=== PATIENT | male | born 1950 | race African-American/Black ===

== ENCOUNTER 2017-05-06 09:59 | Observation (INO) ==
[2017-05-06] MEDS ORDERED: ONDANSETRON 4 MG/2 ML VIAL IV PRN ×2 (10:48→15:20)
[2017-05-06] MEDS ORDERED: SODIUM CHLORIDE 0.9% 1,000 ML IV SCH (11:00)
[2017-05-06 11:22] LABS: Basophils % 0.6 % (0.0-0.8); Eosinophils % 0.8 % (0.00-10.9); Hematocrit 31.4 VOL% (42.0-52.0); Hemoglobin 10.2 GM/DL (14.0-18.0); Immature Granulocytes % 0.8 %; Immature Granulocytes Absolute 0.04 #; Lymphocytes # 0.7 10*3/uL (1.4-4.0); Lymphocytes % 14.6 % (21.2-54.2); Mean Corpuscular HGB Conc 32.5 GM/DL (32-36); Mean Corpuscular Hemoglobin 32 PG (27-34); Mean Corpuscular Volume 97.8 FL (87-102); Mean Platelet Volume 11.2 FL (9.6-12.0); Monocytes # 0.3 10*3/uL (0.11-0.8); Monocytes % 6.3 % (1.7-12.7); Neutrophils # 3.8 10*3/uL (1.4-7.4); Neutrophils % 76.9 % (38.7-73.9); Platelet Count 187 T/CUMM (130-400); Red Blood Count 3.21 MC/CUMM (3.8-5.5); Red Cell Distribution Width 20.1 % (9.3-17.3); White Blood Count 4.9 T/CUMM (4-12)
[2017-05-06 11:29] LABS: INR 1.1
[2017-05-06] MEDS ORDERED: DEXTROSE 5% 1,000 ML IV SCH (11:30)
[2017-05-06] MEDS ORDERED: fentaNYL 100 MCG/2 ML VIAL ONE (12:15)
[2017-05-06] MEDS ORDERED: MIDAZOLAM 2 MG/2 ML VIAL ONE (12:16)
[2017-05-06] MEDS ORDERED: ONDANSETRON 4 MG/2 ML VIAL ONE (13:12)
[2017-05-06] MEDS ORDERED: PROPOFOL 200 MG/20 ML VIAL IV ONE (13:12)
[2017-05-06] MEDS ORDERED: LIDOCAINE 1% 5 ML VIAL ONE (13:12)
[2017-05-06] MEDS ORDERED: GLUCAGON 1 MG VIAL ONE (13:24)
[2017-05-06] MEDS ORDERED: MAGNESIUM HYDROXIDE SUSP 30 ML UDCUP PO PRN (15:20)
[2017-05-06] MEDS: oxyCODONE/ACETAMINOPHEN 5-325 MG TABLET PO SCH ×2 (16:16→21:27)
[2017-05-06] MEDS: glyBURIDE 5 MG TABLET PO SCH (16:16)
[2017-05-06] MEDS ORDERED: SAXAGLIPTIN 5 MG PO SCH (17:00)
[2017-05-06 17:35] LABS: Albumin 2.5 G/DL (3.4-5.0); Bilirubin,Direct 9.69 MG/DL (0.0-0.20); Bilirubin,Indirect 1.8 MG/DL (0.0-1.0); Bilirubin,Total 11.5 MG/DL (0.2-1.0); Total Protein 6.1 G/DL (6.4-8.3)
[2017-05-06] MEDS: CIPROFLOXACIN INJ 400 MG in PREMIX 1 EACH IV SCH (17:40)
[2017-05-06] MEDS: cloNIDine 0.1 MG TABLET PO SCH (21:26)
[2017-05-06] MEDS: MAGNESIUM OXIDE 400 MG TABLET PO SCH (21:26)
[2017-05-06] MEDS: DOCUSATE SODIUM 100 MG CAPSULE PO SCH (21:26)
[2017-05-06] MEDS: CYCLOBENZAPRINE 10 MG TABLET PO SCH (21:26)
[2017-05-07] MEDS: oxyCODONE/ACETAMINOPHEN 5-325 MG TABLET PO SCH ×4 (05:28→21:08)
[2017-05-07] MEDS: CIPROFLOXACIN INJ 400 MG in PREMIX 1 EACH IV SCH ×2 (05:29→16:09)
[2017-05-07 06:45] LABS: Albumin 2.3 G/DL (3.4-5.0); Bilirubin,Direct 10.4 MG/DL (0.0-0.20); Total Protein 5.6 G/DL (6.4-8.3)
[2017-05-07 06:48] LABS: Bilirubin,Indirect 2.4 MG/DL (0.0-1.0); Bilirubin,Total 12.8 MG/DL (0.2-1.0)
[2017-05-07] MEDS ORDERED: DEXTROSE 50% 25 GM/50 ML VIAL IV PRN ×2 (07:04→11:46)
[2017-05-07] MEDS ORDERED: DEXTROSE 50% 25 GM/50 ML VIAL IV ONE ×2 (07:04→11:34)
[2017-05-07 08:59] LABS: Basophils % 0.3 % (0.0-0.8); Eosinophils % 0.3 % (0.00-10.9); Hematocrit 30.7 VOL% (42.0-52.0); Immature Granulocytes % 0.6 %; Immature Granulocytes Absolute 0.04 #; Lymphocytes # 0.5 10*3/uL (1.4-4.0); Lymphocytes % 7.4 % (21.2-54.2); Mean Corpuscular HGB Conc 32.6 GM/DL (32-36); Mean Corpuscular Hemoglobin 32 PG (27-34); Mean Corpuscular Volume 96.8 FL (87-102); Mean Platelet Volume 12.4 FL (9.6-12.0); Monocytes # 0.4 10*3/uL (0.11-0.8); Monocytes % 6.5 % (1.7-12.7); Neutrophils # 5.5 10*3/uL (1.4-7.4); Neutrophils % 84.9 % (38.7-73.9); Platelet Count 179 T/CUMM (130-400); Red Blood Count 3.17 MC/CUMM (3.8-5.5); White Blood Count 6.5 T/CUMM (4-12)
[2017-05-07] MEDS ORDERED: GLUCAGON 1 MG VIAL IM PRN (11:46)
[2017-05-07] MEDS: hydroCHLOROthiazide 25 MG TABLET PO SCH (11:57)
[2017-05-07] MEDS: amLODIPine 10 MG TABLET PO SCH (11:57)
[2017-05-07] MEDS: cloNIDine 0.1 MG TABLET PO SCH ×2 (11:57→21:07)
[2017-05-07] MEDS: POTASSIUM CHLORIDE 20 MEQ TABLET PO SCH (11:57)
[2017-05-07] MEDS: ASPIRIN EC 81 MG TABLET PO SCH (11:58)
[2017-05-07] MEDS: CYCLOBENZAPRINE 10 MG TABLET PO SCH ×3 (11:58→21:07)
[2017-05-07] MEDS: MAGNESIUM OXIDE 400 MG TABLET PO SCH ×2 (11:58→21:08)
[2017-05-07] MEDS: DOCUSATE SODIUM 100 MG CAPSULE PO SCH ×2 (11:58→21:07)
[2017-05-07] MEDS: MULTIVITAMIN (CENTRUM) TABLET PO SCH (11:58)
[2017-05-07] MEDS: glyBURIDE 5 MG TABLET PO SCH ×2 (11:59→16:09)
[2017-05-07] MEDS: BENAZEPRIL 40 MG TABLET PO SCH (12:08)
[2017-05-07] MEDS: DEXTROSE 5% NACL 0.45% 1,000 ML IV SCH ×2 (12:47→21:09)
[2017-05-08] MEDS: oxyCODONE/ACETAMINOPHEN 5-325 MG TABLET PO SCH ×3 (04:01→17:05)
[2017-05-08] MEDS: CIPROFLOXACIN INJ 400 MG in PREMIX 1 EACH IV SCH ×2 (04:05→17:06)
[2017-05-08] MEDS: DEXTROSE 5% NACL 0.45% 1,000 ML IV SCH ×2 (04:07→17:06)
[2017-05-08 07:31] LABS: Albumin 2.2 G/DL (3.4-5.0); Bilirubin,Direct 8.16 MG/DL (0.0-0.20); Bilirubin,Indirect 1.8 MG/DL (0.0-1.0); Total Protein 5.6 G/DL (6.4-8.3)
[2017-05-08] MEDS: glyBURIDE 5 MG TABLET PO SCH ×2 (08:00→17:05)
[2017-05-08] MEDS: cloNIDine 0.1 MG TABLET PO SCH (09:42)
[2017-05-08] MEDS: hydroCHLOROthiazide 25 MG TABLET PO SCH (09:42)
[2017-05-08] MEDS: amLODIPine 10 MG TABLET PO SCH (09:42)
[2017-05-08] MEDS: CYCLOBENZAPRINE 10 MG TABLET PO SCH ×2 (09:42→14:58)
[2017-05-08] MEDS: BENAZEPRIL 40 MG TABLET PO SCH (09:42)
[2017-05-08] MEDS ORDERED: DEXTROSE 50% 25 GM/50 ML VIAL IV PRN (12:37)
[2017-05-08] MEDS ORDERED: GLUCAGON 1 MG VIAL IM PRN (12:37)
[2017-05-08] MEDS: MAGNESIUM OXIDE 400 MG TABLET PO SCH (14:57)
[2017-05-08] MEDS: DOCUSATE SODIUM 100 MG CAPSULE PO SCH (14:58)
[2017-05-08] MEDS: MULTIVITAMIN (CENTRUM) TABLET PO SCH (14:58)
[2017-05-08] MEDS: POTASSIUM CHLORIDE 20 MEQ TABLET PO SCH (14:58)
[2017-05-08] MEDS: ASPIRIN EC 81 MG TABLET PO SCH (15:00)
[2017-05-08] MEDS ORDERED: ONDANSETRON 4 MG TABLET PO SCH (18:00)
[2017-05-08 20:30] VITALS: BP 147/90
[2017-05-08] MEDS ORDERED: FERROUS SULFATE 325 MG TABLET PO SCH (21:00)
== END 2017-05-08 18:20 | disposition home or self-care (01) ==
LOC: N.5E 09:59 → N.GILAB 09:59
PROVIDERS: ADMIT Internal Medicine Gastroenterology; ATTEND Internal Medicine Gastroenterology

== ENCOUNTER 2017-09-03 05:29 | Inpatient (IN) ==
[2017-09-03] MEDS ORDERED: ONDANSETRON 4 MG/2 ML VIAL IV STA (06:07)
[2017-09-03] MEDS ORDERED: fentaNYL 100 MCG/2 ML VIAL IV STA (06:07)
[2017-09-03 06:27] LABS: Basophils % 0.3 % (0.0-0.8); Eosinophils % 0.3 % (0.00-10.9); Hematocrit 25.6 VOL% (42.0-52.0); Hemoglobin 8.2 GM/DL (14.0-18.0); Immature Granulocytes % 0.5 %; Immature Granulocytes Absolute 0.02 #; Lymphocytes # 0.3 10*3/uL (1.4-4.0); Mean Corpuscular Hemoglobin 33 PG (27-34); Mean Corpuscular Volume 104.1 FL (87-102); Mean Platelet Volume 11.2 FL (9.6-12.0); Monocytes # 0.2 10*3/uL (0.11-0.8); Monocytes % 4.6 % (1.7-12.7); Neutrophils # 3.2 10*3/uL (1.4-7.4); Neutrophils % 86.3 % (38.7-73.9); Platelet Count 106 T/CUMM (130-400); Red Blood Count 2.46 MC/CUMM (3.8-5.5); Red Cell Distribution Width 21.2 % (9.3-17.3); White Blood Count 3.7 T/CUMM (4-12)
[2017-09-03 06:55] LABS: Albumin 2.5 G/DL (3.4-5.0); Bilirubin,Total 8.1 MG/DL (0.2-1.0); Calcium 8.9 MG/DL (8.5-10.1); Total Protein 6.8 G/DL (6.4-8.3)
[2017-09-03 06:56] LABS: Osmolality,Calculated 282.7 MOS/KG (273-304)
[2017-09-03 07:19] LABS: Amorphous Crystals,Urine Occasional /HPF (Few); Apearance,Urine CLEAR (Clear); Bacteria,Urine Occasional /HPF (Few); Blood, Urine Negative (Negative); Glucose,Urine (UA) Negative (Negative); Hyaline Casts,Urine 1 /LPF (0-3); Ketones,Urine Negative (Negative); Mucus,Urine Occasional /LPF (Occasional); Nitrite,Urine Negative (Negative); Protein,Urine Negative; Squamous Epithelial Cell,Urine Occasional /HPF (0-10); Urine Color Amber (Yellow); Urine Specific Gravity 1.016 (1.001-1.035); WBC,Urine 1 /HPF (0-6)
[2017-09-03 07:20] LABS: Bilirubin,Urine Small mg/dL (Negative)
[2017-09-03] MEDS ORDERED: PROMETHAZINE INJ 25 MG in SODIUM CHLORIDE 0.9% 50 ML IV PRN (09:59)
[2017-09-03] MEDS ORDERED: TEMAZEPAM 7.5 MG CAPSULE PO PRN (09:59)
[2017-09-03] MEDS ORDERED: ALPRAZolam 0.25 MG TABLET PO PRN (09:59)
[2017-09-03] MEDS ORDERED: traMADol 50 MG TABLET PO PRN (09:59)
[2017-09-03] MEDS ORDERED: chlorproMAZINE INJ 25 MG in SODIUM CHLORIDE 0.9% 100 ML IV PRN (09:59)
[2017-09-03] MEDS ORDERED: BENZTROPINE 2 MG/2 ML AMP IV PRN (09:59)
[2017-09-03] MEDS ORDERED: diphenhydrAMINE CAP 25 MG CAPSULE PO PRN (09:59)
[2017-09-03] MEDS ORDERED: ONDANSETRON 4 MG/2 ML VIAL IV PRN (09:59)
[2017-09-03] MEDS ORDERED: MYLANTA/LIDO VISC 2:1 300 ML BOTTLE SWISH/SPIT PRN (09:59)
[2017-09-03] MEDS ORDERED: ACETAMINOPHEN 325 MG TABLET PO PRN (09:59)
[2017-09-03] MEDS ORDERED: fentaNYL 100 MCG/2 ML VIAL IV PRN (09:59)
[2017-09-03] MEDS ORDERED: MAGNESIUM HYDROXIDE SUSP 30 ML UDCUP PO PRN (09:59)
[2017-09-03] MEDS ORDERED: LACTULOSE 20 GM/30 ML UDCUP PO PRN (09:59)
[2017-09-03] MEDS ORDERED: MYLANTA/LIDO VISC 2:1 300 ML BOTTLE SWISH/SWAL PRN (09:59)
[2017-09-03] MEDS ORDERED: guaiFENesin 200 MG/10 ML UDCUP PO PRN (09:59)
[2017-09-03] MEDS ORDERED: chlorproMAZINE INJ 50 MG in SODIUM CHLORIDE 0.9% 100 ML IV PRN (09:59)
[2017-09-03] MEDS ORDERED: ALUMINUM/MAGNES/SIMETH MAX STR 30 ML UDCUP PO PRN (09:59)
[2017-09-03] MEDS ORDERED: chlorproMAZINE 25 MG TABLET PO PRN (09:59)
[2017-09-03] MEDS ORDERED: SODIUM CHLORIDE 0.9% 1,000 ML IV SCH (09:59)
[2017-09-03] MEDS ORDERED: LOPERAMIDE 2 MG CAPSULE PO PRN ×2 (09:59)
[2017-09-03] MEDS: SODIUM CHLORIDE 0.45% 1,000 ML IV SCH (10:44)
[2017-09-03] MEDS: HYDROmorphone 2 MG/1 ML VIAL IV PRN ×2 (11:34→16:34)
[2017-09-03 12:11] LABS: Apearance,Urine CLEAR (Clear); Bilirubin,Urine Small mg/dL (Negative); Blood, Urine Negative (Negative); Glucose,Urine (UA) Negative (Negative); Ketones,Urine Negative (Negative); Nitrite,Urine Negative (Negative); Protein,Urine Negative; RBC,Urine 1 /HPF (0-4); Urine Color Amber (Yellow); Urine Specific Gravity 1.049 (1.001-1.035); WBC,Urine <1 /HPF (0-6)
[2017-09-03] MEDS ORDERED: ONDANSETRON 4 MG TABLET PO PRN (13:36)
[2017-09-03] MEDS: GABAPENTIN 300 MG CAPSULE PO SCH ×2 (14:01→21:15)
[2017-09-03] MEDS: amLODIPine 10 MG TABLET PO SCH (14:02)
[2017-09-03] MEDS: BENAZEPRIL 40 MG TABLET PO SCH (14:02)
[2017-09-03] MEDS: hydroCHLOROthiazide 25 MG TABLET PO SCH (14:02)
[2017-09-03] MEDS: DOCUSATE SODIUM 100 MG CAPSULE PO SCH (21:15)
[2017-09-03] MEDS: MAGNESIUM OXIDE 400 MG TABLET PO SCH (21:15)
[2017-09-03] MEDS: cloNIDine 0.1 MG TABLET PO SCH (21:15)
[2017-09-04 04:57] LABS: INR 1.1; PT Patient Result 11.7 SECS
[2017-09-04] MEDS: SODIUM CHLORIDE 0.45% 1,000 ML IV SCH (05:06)
[2017-09-04 05:25] LABS: Albumin 2.1 G/DL (3.4-5.0); Bilirubin,Total 6.8 MG/DL (0.2-1.0); Calcium 8.6 MG/DL (8.5-10.1); Osmolality,Calculated 282.5 MOS/KG (273-304); Potassium 4.1 MMOL/L (3.5-5.1); Total Protein 5.7 G/DL (6.4-8.3)
[2017-09-04 05:39] LABS: Eosinophils % 0.7 % (0.00-10.9); Hematocrit 21.4 VOL% (42.0-52.0); Hemoglobin 7.1 GM/DL (14.0-18.0); Immature Granulocytes % 0.7 %; Immature Granulocytes Absolute 0.02 #; Lymphocytes # 0.3 10*3/uL (1.4-4.0); Lymphocytes % 10.7 % (21.2-54.2); Mean Corpuscular HGB Conc 33.2 GM/DL (32-36); Mean Corpuscular Hemoglobin 34 PG (27-34); Mean Corpuscular Volume 100.9 FL (87-102); Mean Platelet Volume 10.7 FL (9.6-12.0); Monocytes # 0.2 10*3/uL (0.11-0.8); Monocytes % 5.9 % (1.7-12.7); Neutrophils # 2.2 10*3/uL (1.4-7.4); Platelet Count 103 T/CUMM (130-400); Red Blood Count 2.12 MC/CUMM (3.8-5.5); Red Cell Distribution Width 21.2 % (9.3-17.3); White Blood Count 2.7 T/CUMM (4-12)
[2017-09-04 07:03] LABS: Anisocytosis 1+; Hypochromasia 1+; Macrocytosis 1+; Ovalocytes Slight
[2017-09-04 07:04] LABS: Platelet Estimate Decreased
[2017-09-04] MEDS: HYDROmorphone 2 MG/1 ML VIAL IV PRN ×2 (08:24→18:32)
[2017-09-04] MEDS ORDERED: PROPOFOL 200 MG/20 ML VIAL IV ONE (08:38)
[2017-09-04] MEDS ORDERED: ONDANSETRON 4 MG/2 ML VIAL ONE ×2 (08:38→15:41)
[2017-09-04] MEDS ORDERED: SUCCINYLCHOLINE 200 MG/10 ML VIAL ONE (08:38)
[2017-09-04] MEDS ORDERED: ROCURONIUM 100 MG/10 ML VIAL IV ONE (08:38)
[2017-09-04] MEDS ORDERED: LIDOCAINE 1% 5 ML VIAL ONE (08:38)
[2017-09-04] MEDS ORDERED: SODIUM CHLORIDE 0.9% 1,000 ML IV PRN (08:40)
[2017-09-04] MEDS ORDERED: fentaNYL 100 MCG/2 ML VIAL ONE ×2 (13:04→15:16)
[2017-09-04] MEDS ORDERED: SEVOFLURANE 1 UNIT/15 MINUTE INH ONE (14:15)
[2017-09-04] MEDS ORDERED: MIDAZOLAM 2 MG/2 ML VIAL IV ONE (14:20)
[2017-09-04] MEDS ORDERED: fentaNYL 100 MCG/2 ML VIAL IV ONE (14:20)
[2017-09-04] MEDS ORDERED: MIDAZOLAM 2 MG/2 ML VIAL ONE (15:16)
[2017-09-04] MEDS ORDERED: hydrALAZINE 20 MG/1 ML VIAL ONE (16:23)
[2017-09-04] MEDS ORDERED: hydrALAZINE 20 MG/1 ML VIAL IV ONE (16:38)
[2017-09-04] MEDS: MULTIVITAMIN (CENTRUM) TABLET PO SCH (17:26)
[2017-09-04] MEDS: cloNIDine 0.1 MG TABLET PO SCH ×2 (17:26→20:32)
[2017-09-04] MEDS: ASPIRIN EC 81 MG TABLET PO SCH (17:26)
[2017-09-04] MEDS: hydroCHLOROthiazide 25 MG TABLET PO SCH (17:27)
[2017-09-04] MEDS: GABAPENTIN 300 MG CAPSULE PO SCH ×3 (17:27→20:33)
[2017-09-04] MEDS: MAGNESIUM OXIDE 400 MG TABLET PO SCH ×2 (17:27→20:33)
[2017-09-04] MEDS: DOCUSATE SODIUM 100 MG CAPSULE PO SCH ×2 (17:27→20:33)
[2017-09-04] MEDS: LACTATED RINGERS 1,000 ML IV SCH ×2 (17:59→20:31)
[2017-09-04] MEDS: CIPROFLOXACIN INJ 400 MG in PREMIX 1 EACH IV SCH (18:00)
[2017-09-04] MEDS: amLODIPine 10 MG TABLET PO SCH (18:05)
[2017-09-04] MEDS: FILGRASTIM-SNDZ 300 MCG/0.5 ML SYRINGE SUBCUT SCH (18:05)
[2017-09-04] MEDS: BENAZEPRIL 40 MG TABLET PO SCH (18:05)
[2017-09-04] MEDS: oxyCODONE/ACETAMINOPHEN 5-325 MG TABLET PO PRN (21:21)
[2017-09-05] MEDS: CIPROFLOXACIN INJ 400 MG in PREMIX 1 EACH IV SCH ×2 (02:58→14:16)
[2017-09-05] MEDS: LACTATED RINGERS 1,000 ML IV SCH ×2 (07:05→08:34)
[2017-09-05] MEDS: MAGNESIUM OXIDE 400 MG TABLET PO SCH ×2 (08:38→20:22)
[2017-09-05] MEDS: GABAPENTIN 300 MG CAPSULE PO SCH ×3 (08:38→20:22)
[2017-09-05] MEDS: FILGRASTIM-SNDZ 300 MCG/0.5 ML SYRINGE SUBCUT SCH (08:38)
[2017-09-05] MEDS: cloNIDine 0.1 MG TABLET PO SCH ×2 (08:38→20:22)
[2017-09-05] MEDS: hydroCHLOROthiazide 25 MG TABLET PO SCH (08:38)
[2017-09-05] MEDS: BENAZEPRIL 40 MG TABLET PO SCH (08:38)
[2017-09-05] MEDS: amLODIPine 10 MG TABLET PO SCH (08:38)
[2017-09-05] MEDS: HYDROmorphone 2 MG/1 ML VIAL IV PRN ×3 (08:38→19:11)
[2017-09-05] MEDS: DOCUSATE SODIUM 100 MG CAPSULE PO SCH ×2 (08:39→20:22)
[2017-09-05] MEDS: MULTIVITAMIN (CENTRUM) TABLET PO SCH (08:39)
[2017-09-05] MEDS: ASPIRIN EC 81 MG TABLET PO SCH (08:39)
[2017-09-05 10:25] LABS: Albumin 1.9 G/DL (3.4-5.0); Bilirubin,Direct 11.5 MG/DL (0.0-0.20); Total Protein 5.9 G/DL (6.4-8.3)
[2017-09-05 10:27] LABS: Bilirubin,Indirect 1.8 MG/DL (0.0-1.0); Bilirubin,Total 13.3 MG/DL (0.2-1.0)
[2017-09-05] MEDS: oxyCODONE/ACETAMINOPHEN 5-325 MG TABLET PO PRN (22:05)
[2017-09-06] MEDS: CIPROFLOXACIN INJ 400 MG in PREMIX 1 EACH IV SCH (02:10)
[2017-09-06] MEDS: LACTATED RINGERS 1,000 ML IV SCH (05:04)
[2017-09-06] MEDS: HYDROmorphone 2 MG/1 ML VIAL IV PRN ×2 (06:25→10:13)
[2017-09-06 06:56] LABS: Basophils % 0.2 % (0.0-0.8); Eosinophils % 0.1 % (0.00-10.9); Hematocrit 28.2 VOL% (42.0-52.0); Hemoglobin 9.2 GM/DL (14.0-18.0); Immature Granulocytes % 8.4 %; Immature Granulocytes Absolute 1.45 #; Lymphocytes # 0.5 10*3/uL (1.4-4.0); Mean Corpuscular HGB Conc 32.6 GM/DL (32-36); Mean Corpuscular Hemoglobin 33 PG (27-34); Mean Corpuscular Volume 99.6 FL (87-102); Mean Platelet Volume 11.3 FL (9.6-12.0); Monocytes # 0.6 10*3/uL (0.11-0.8); Monocytes % 3.5 % (1.7-12.7); Neutrophils # 14.6 10*3/uL (1.4-7.4); Neutrophils % 84.8 % (38.7-73.9); Platelet Count 111 T/CUMM (130-400); Red Blood Count 2.83 MC/CUMM (3.8-5.5); Red Cell Distribution Width 20.5 % (9.3-17.3); White Blood Count 17.2 T/CUMM (4-12)
[2017-09-06 07:24] LABS: Band Neutrophils 5 % (0-10); Lymphocytes 5 % (20-55); Macrocytosis 2+; Platelet Estimate Decreased; Segmented Neutrophils 87 % (50-85); Total Cells Counted 100
[2017-09-06 07:32] LABS: Bilirubin,Total 11.6 MG/DL (0.2-1.0); Calcium 8.6 MG/DL (8.5-10.1); Potassium 4.5 MMOL/L (3.5-5.1); Total Protein 5.9 G/DL (6.4-8.3)
[2017-09-06] MEDS: MAGNESIUM OXIDE 400 MG TABLET PO SCH (08:44)
[2017-09-06] MEDS: DOCUSATE SODIUM 100 MG CAPSULE PO SCH (08:44)
[2017-09-06] MEDS: GABAPENTIN 300 MG CAPSULE PO SCH (08:44)
[2017-09-06] MEDS: cloNIDine 0.1 MG TABLET PO SCH (08:44)
[2017-09-06] MEDS: ASPIRIN EC 81 MG TABLET PO SCH (08:44)
[2017-09-06] MEDS: hydroCHLOROthiazide 25 MG TABLET PO SCH (08:44)
[2017-09-06] MEDS: BENAZEPRIL 40 MG TABLET PO SCH (08:44)
[2017-09-06] MEDS: MULTIVITAMIN (CENTRUM) TABLET PO SCH (08:44)
[2017-09-06] MEDS: amLODIPine 10 MG TABLET PO SCH (08:45)
[2017-09-06] MEDS ORDERED: fentaNYL 50 MCG/HR PATCH TRANSDERM SCH (09:00)
[2017-09-06 09:53] VITALS: BP 111/68
== END 2017-09-06 11:19 | disposition home or self-care (01) | DRG 919 ==
LOC: N.ED 05:29 → N.EDINP 08:38 → N.4E 09:30
PROVIDERS: ADMIT Specialist; ATTEND Specialist

== ENCOUNTER 2017-09-15 05:35 | Inpatient (IN) ==
[2017-09-15] MEDS ORDERED: MORPHINE 4 MG/1 ML VIAL IV STA ×2 (06:22→09:01)
[2017-09-15] MEDS ORDERED: SODIUM CHLORIDE 0.9% 500 ML IV STA (06:22)
[2017-09-15] MEDS ORDERED: ONDANSETRON 4 MG/2 ML VIAL IV STA (06:22)
[2017-09-15 07:05] LABS: Basophils % 0.2 % (0.0-0.8); Eosinophils % 0.5 % (0.00-10.9); Hemoglobin 6.7 GM/DL (14.0-18.0); Immature Granulocytes % 0.9 %; Immature Granulocytes Absolute 0.04 #; Red Cell Distribution Width 19.6 % (9.3-17.3)
[2017-09-15 07:10] LABS: Hematocrit 20.3 VOL% (42.0-52.0); Lymphocytes # 0.3 10*3/uL (1.4-4.0); Lymphocytes % 7.3 % (21.2-54.2); Mean Corpuscular Hemoglobin 34 PG (27-34); Mean Corpuscular Volume 101.5 FL (87-102); Mean Platelet Volume 11.3 FL (9.6-12.0); Monocytes # 0.3 10*3/uL (0.11-0.8); Monocytes % 6.1 % (1.7-12.7); Neutrophils # 3.7 10*3/uL (1.4-7.4); Platelet Count 167 T/CUMM (130-400); White Blood Count 4.4 T/CUMM (4-12)
[2017-09-15 07:12] LABS: Amorphous Crystals,Urine Occasional /HPF (Few); Apearance,Urine CLEAR (Clear); Bilirubin,Urine Negative (Negative); Blood, Urine Negative (Negative); Glucose,Urine (UA) Negative (Negative); Ketones,Urine Negative (Negative); Mucus,Urine Occasional /LPF (Occasional); Nitrite,Urine Negative (Negative); Protein,Urine Negative; RBC,Urine <1 /HPF (0-4); Squamous Epithelial Cell,Urine Occasional /HPF (0-10); Urine Color Amber (Yellow); Urine Specific Gravity 1.013 (1.001-1.035); Urine Urobilinogen < 2.0 EU/DL (0.2-1.0); WBC,Urine 1 /HPF (0-6)
[2017-09-15 07:23] LABS: Lactic Acid 1.5 MMOL/L (0.4-2.0)
[2017-09-15 07:33] LABS: Bilirubin,Total 5.8 MG/DL (0.2-1.0); Calcium 8.6 MG/DL (8.5-10.1); Osmolality,Calculated 295.5 MOS/KG (273-304); Potassium 5.7 MMOL/L (3.5-5.1); Total Protein 6.7 G/DL (6.4-8.3)
[2017-09-15] MEDS ORDERED: SODIUM CHLORIDE 0.9% 1,000 ML IV PRN (09:56)
[2017-09-15] MEDS ORDERED: LOPERAMIDE 2 MG CAPSULE PO PRN ×2 (10:22)
[2017-09-15] MEDS ORDERED: chlorproMAZINE INJ 25 MG in SODIUM CHLORIDE 0.9% 100 ML IV PRN (10:22)
[2017-09-15] MEDS ORDERED: MYLANTA/LIDO VISC 2:1 300 ML BOTTLE SWISH/SWAL PRN (10:22)
[2017-09-15] MEDS ORDERED: chlorproMAZINE 25 MG TABLET PO PRN (10:22)
[2017-09-15] MEDS ORDERED: ONDANSETRON 4 MG/2 ML VIAL IV PRN (10:22)
[2017-09-15] MEDS ORDERED: chlorproMAZINE INJ 50 MG in SODIUM CHLORIDE 0.9% 100 ML IV PRN (10:22)
[2017-09-15] MEDS ORDERED: TEMAZEPAM 7.5 MG CAPSULE PO PRN (10:22)
[2017-09-15] MEDS ORDERED: ACETAMINOPHEN 325 MG TABLET PO PRN (10:22)
[2017-09-15] MEDS ORDERED: PROMETHAZINE INJ 25 MG in SODIUM CHLORIDE 0.9% 50 ML IV PRN (10:22)
[2017-09-15] MEDS ORDERED: MYLANTA/LIDO VISC 2:1 300 ML BOTTLE SWISH/SPIT PRN (10:22)
[2017-09-15] MEDS ORDERED: LACTULOSE 20 GM/30 ML UDCUP PO PRN (10:22)
[2017-09-15] MEDS ORDERED: ALPRAZolam 0.25 MG TABLET PO PRN (10:22)
[2017-09-15] MEDS ORDERED: BENZTROPINE 2 MG/2 ML AMP IV PRN (10:22)
[2017-09-15] MEDS ORDERED: traMADol 50 MG TABLET PO PRN (10:22)
[2017-09-15] MEDS ORDERED: diphenhydrAMINE CAP 25 MG CAPSULE PO PRN (10:22)
[2017-09-15] MEDS ORDERED: guaiFENesin 200 MG/10 ML UDCUP PO PRN (10:22)
[2017-09-15] MEDS ORDERED: MAGNESIUM HYDROXIDE SUSP 30 ML UDCUP PO PRN (10:22)
[2017-09-15] MEDS ORDERED: ALUMINUM/MAGNES/SIMETH MAX STR 30 ML UDCUP PO PRN (10:22)
[2017-09-15 13:02] LABS: Eosinophils % 0.2 % (0.00-10.9); Hematocrit 20.8 VOL% (42.0-52.0); Hemoglobin 6.5 GM/DL (14.0-18.0); Immature Granulocytes % 0.4 %; Immature Granulocytes Absolute 0.02 #; Lymphocytes # 0.3 10*3/uL (1.4-4.0); Lymphocytes % 6.4 % (21.2-54.2); Mean Corpuscular HGB Conc 31.3 GM/DL (32-36); Mean Corpuscular Hemoglobin 33 PG (27-34); Mean Corpuscular Volume 104.5 FL (87-102); Mean Platelet Volume 11.7 FL (9.6-12.0); Monocytes # 0.3 10*3/uL (0.11-0.8); Monocytes % 6.2 % (1.7-12.7); Neutrophils # 4.3 10*3/uL (1.4-7.4); Neutrophils % 86.8 % (38.7-73.9); Platelet Count 168 T/CUMM (130-400); Red Blood Count 1.99 MC/CUMM (3.8-5.5); Red Cell Distribution Width 19.7 % (9.3-17.3)
[2017-09-15 13:19] LABS: Bilirubin,Total 5.5 MG/DL (0.2-1.0); Calcium 8.4 MG/DL (8.5-10.1); Osmolality,Calculated 294.4 MOS/KG (273-304); Potassium 5.7 MMOL/L (3.5-5.1); Total Protein 6.6 G/DL (6.4-8.3); Uric Acid 6.6 MG/DL (3.5-7.2)
[2017-09-15] MEDS: HYDROmorphone 2 MG/1 ML VIAL IV PRN (13:42)
[2017-09-15] MEDS: GABAPENTIN 300 MG CAPSULE PO SCH ×2 (15:14→20:21)
[2017-09-15 16:51] LABS: Apearance,Urine CLEAR (Clear); Bilirubin,Urine Negative (Negative); Blood, Urine Negative (Negative); Glucose,Urine (UA) Negative (Negative); Ketones,Urine Negative (Negative); Mucus,Urine Occasional /LPF (Occasional); Nitrite,Urine Negative (Negative); Protein,Urine Negative; RBC,Urine <1 /HPF (0-4); Squamous Epithelial Cell,Urine Occasional /HPF (0-10); Urine Color Amber (Yellow); Urine Specific Gravity 1.014 (1.001-1.035); Urine Urobilinogen < 2.0 EU/DL (0.2-1.0); WBC,Urine 1 /HPF (0-6)
[2017-09-15] MEDS: MAGNESIUM OXIDE 400 MG TABLET PO SCH (20:21)
[2017-09-15] MEDS: cloNIDine 0.1 MG TABLET PO SCH (20:21)
[2017-09-15] MEDS: DOCUSATE SODIUM 100 MG CAPSULE PO SCH (20:21)
[2017-09-15] MEDS: INSULIN GLARGINE 100 UNIT/ML SUBCUT SCH (21:24)
[2017-09-16 05:05] LABS: Basophils % 0.2 % (0.0-0.8); Eosinophils % 0.7 % (0.00-10.9); Hematocrit 25.1 VOL% (42.0-52.0); Immature Granulocytes % 0.2 %; Immature Granulocytes Absolute 0.01 #; Lymphocytes # 0.4 10*3/uL (1.4-4.0); Lymphocytes % 9.5 % (21.2-54.2); Mean Corpuscular HGB Conc 32.7 GM/DL (32-36); Mean Corpuscular Hemoglobin 32 PG (27-34); Mean Corpuscular Volume 97.3 FL (87-102); Mean Platelet Volume 11.6 FL (9.6-12.0); Monocytes # 0.3 10*3/uL (0.11-0.8); Monocytes % 7.8 % (1.7-12.7); Neutrophils # 3.5 10*3/uL (1.4-7.4); Neutrophils % 81.6 % (38.7-73.9); Platelet Count 147 T/CUMM (130-400); Red Blood Count 2.58 MC/CUMM (3.8-5.5); Red Cell Distribution Width 19.5 % (9.3-17.3); White Blood Count 4.2 T/CUMM (4-12)
[2017-09-16 05:08] LABS: Hemoglobin 8.2 GM/DL (14.0-18.0)
[2017-09-16 05:56] LABS: Albumin 1.8 G/DL (3.4-5.0); Bilirubin,Total 6.2 MG/DL (0.2-1.0); Calcium 8.4 MG/DL (8.5-10.1); Osmolality,Calculated 292.3 MOS/KG (273-304); Potassium 5.6 MMOL/L (3.5-5.1); Total Protein 5.9 G/DL (6.4-8.3)
[2017-09-16] MEDS: HYDROmorphone 2 MG/1 ML VIAL IV PRN ×4 (07:50→20:53)
[2017-09-16] MEDS ORDERED: amLODIPine 10 MG TABLET PO SCH (09:00)
[2017-09-16] MEDS: sitaGLIPtin 100 MG TABLET PO SCH (09:25)
[2017-09-16] MEDS: DOCUSATE SODIUM 100 MG CAPSULE PO SCH ×2 (09:26→20:44)
[2017-09-16] MEDS: BENAZEPRIL 40 MG TABLET PO SCH (09:26)
[2017-09-16] MEDS: ASPIRIN EC 81 MG TABLET PO SCH (09:26)
[2017-09-16] MEDS: MAGNESIUM OXIDE 400 MG TABLET PO SCH ×2 (09:26→20:44)
[2017-09-16] MEDS: cloNIDine 0.1 MG TABLET PO SCH ×2 (09:26→20:44)
[2017-09-16] MEDS: GABAPENTIN 300 MG CAPSULE PO SCH ×3 (09:27→20:44)
[2017-09-16] MEDS: ONDANSETRON 4 MG TABLET PO SCH ×2 (13:49→17:12)
[2017-09-16] MEDS: INSULIN GLARGINE 100 UNIT/ML SUBCUT SCH (20:45)
[2017-09-16] MEDS: oxyCODONE IR 5 MG TABLET PO PRN (22:42)
[2017-09-17] MEDS: ONDANSETRON 4 MG TABLET PO SCH ×4 (01:33→17:28)
[2017-09-17 05:09] LABS: Basophils % 0.3 % (0.0-0.8); Eosinophils % 1.3 % (0.00-10.9); Hematocrit 25.1 VOL% (42.0-52.0); Hemoglobin 8.2 GM/DL (14.0-18.0); Immature Granulocytes % 0.5 %; Lymphocytes # 0.4 10*3/uL (1.4-4.0); Lymphocytes % 11.1 % (21.2-54.2); Mean Corpuscular HGB Conc 32.7 GM/DL (32-36); Mean Corpuscular Hemoglobin 32 PG (27-34); Mean Corpuscular Volume 97.7 FL (87-102); Mean Platelet Volume 11.7 FL (9.6-12.0); Monocytes # 0.4 10*3/uL (0.11-0.8); Monocytes % 10.6 % (1.7-12.7); Neutrophils # 2.9 10*3/uL (1.4-7.4); Neutrophils % 76.2 % (38.7-73.9); Platelet Count 147 T/CUMM (130-400); Red Blood Count 2.57 MC/CUMM (3.8-5.5); Red Cell Distribution Width 19.4 % (9.3-17.3); White Blood Count 3.8 T/CUMM (4-12)
[2017-09-17 05:10] LABS: Eosinophils # 0.1 10*3/uL (0.0-0.87); Immature Granulocytes Absolute 0.02 #
[2017-09-17] MEDS: HYDROmorphone 2 MG/1 ML VIAL IV PRN ×7 (06:43→18:58)
[2017-09-17] MEDS ORDERED: ceFAZolin 1,000 MG in SYRINGE 1 EACH IV ONE (08:32)
[2017-09-17] MEDS ORDERED: ONDANSETRON 4 MG/2 ML VIAL ONE (11:11)
[2017-09-17] MEDS ORDERED: HYDROmorphone 2 MG/1 ML VIAL ONE (11:11)
[2017-09-17] MEDS ORDERED: ONDANSETRON 4 MG/2 ML VIAL IV PRN (11:16)
[2017-09-17] MEDS ORDERED: PROPOFOL 200 MG/20 ML VIAL IV ONE (12:12)
[2017-09-17] MEDS ORDERED: MIDAZOLAM 2 MG/2 ML VIAL ONE (12:13)
[2017-09-17] MEDS ORDERED: PROPOFOL 500 MG/50 ML BOTTLE IV ONE (12:13)
[2017-09-17] MEDS: ASPIRIN EC 81 MG TABLET PO SCH (12:52)
[2017-09-17] MEDS: cloNIDine 0.1 MG TABLET PO SCH ×2 (12:52→21:18)
[2017-09-17] MEDS: BENAZEPRIL 40 MG TABLET PO SCH (12:52)
[2017-09-17] MEDS: GABAPENTIN 300 MG CAPSULE PO SCH ×3 (12:52→21:18)
[2017-09-17] MEDS: sitaGLIPtin 100 MG TABLET PO SCH ×2 (12:52→15:06)
[2017-09-17] MEDS: MAGNESIUM OXIDE 400 MG TABLET PO SCH ×2 (12:52→21:17)
[2017-09-17] MEDS: DOCUSATE SODIUM 100 MG CAPSULE PO SCH ×2 (12:53→21:18)
[2017-09-17] MEDS ORDERED: DEXTROSE 50% 25 GM/50 ML VIAL IV PRN (14:33)
[2017-09-17] MEDS ORDERED: GLUCAGON 1 MG VIAL IM PRN (14:33)
[2017-09-17] MEDS: oxyCODONE IR 5 MG TABLET PO PRN (15:04)
[2017-09-17] MEDS: INSULIN GLARGINE 100 UNIT/ML SUBCUT SCH (21:18)
[2017-09-18] MEDS: HYDROmorphone 2 MG/1 ML VIAL IV PRN ×4 (02:35→22:14)
[2017-09-18] MEDS: ONDANSETRON 4 MG TABLET PO SCH ×5 (04:31→23:40)
[2017-09-18 04:39] LABS: Basophils % 0.2 % (0.0-0.8); Eosinophils % 0.8 % (0.00-10.9); Hematocrit 27.6 VOL% (42.0-52.0); Immature Granulocytes % 0.4 %; Immature Granulocytes Absolute 0.02 #; Lymphocytes # 0.4 10*3/uL (1.4-4.0); Lymphocytes % 8.2 % (21.2-54.2); Mean Corpuscular HGB Conc 32.6 GM/DL (32-36); Mean Corpuscular Hemoglobin 32 PG (27-34); Mean Corpuscular Volume 97.9 FL (87-102); Mean Platelet Volume 10.9 FL (9.6-12.0); Monocytes # 0.4 10*3/uL (0.11-0.8); Monocytes % 7.6 % (1.7-12.7); Neutrophils # 3.9 10*3/uL (1.4-7.4); Neutrophils % 82.8 % (38.7-73.9); Platelet Count 155 T/CUMM (130-400); Red Blood Count 2.82 MC/CUMM (3.8-5.5); Red Cell Distribution Width 18.8 % (9.3-17.3); White Blood Count 4.8 T/CUMM (4-12)
[2017-09-18 05:11] LABS: Albumin 1.7 G/DL (3.4-5.0); Bilirubin,Total 10.2 MG/DL (0.2-1.0); Calcium 8.7 MG/DL (8.5-10.1); Osmolality,Calculated 282.5 MOS/KG (273-304); Potassium 5.5 MMOL/L (3.5-5.1); Total Protein 6.2 G/DL (6.4-8.3)
[2017-09-18] MEDS ORDERED: SODIUM POLYSTYRENE SULFATE 15 GM/60 ML BOTTLE PO STA (08:38)
[2017-09-18] MEDS ORDERED: fentaNYL 50 MCG/HR PATCH TRANSDERM SCH (09:00)
[2017-09-18] MEDS: cloNIDine 0.1 MG TABLET PO SCH ×2 (09:51→20:37)
[2017-09-18] MEDS: ASPIRIN EC 81 MG TABLET PO SCH (09:51)
[2017-09-18] MEDS: DOCUSATE SODIUM 100 MG CAPSULE PO SCH ×2 (09:51→20:38)
[2017-09-18] MEDS: MAGNESIUM OXIDE 400 MG TABLET PO SCH ×2 (09:51→20:38)
[2017-09-18] MEDS: GABAPENTIN 300 MG CAPSULE PO SCH ×3 (09:51→20:38)
[2017-09-18] MEDS: BENAZEPRIL 40 MG TABLET PO SCH (09:51)
[2017-09-18] MEDS: sitaGLIPtin 100 MG TABLET PO SCH (09:51)
[2017-09-18] MEDS: INSULIN GLARGINE 100 UNIT/ML SUBCUT SCH (20:38)
[2017-09-19 04:16] LABS: Basophils % 0.3 % (0.0-0.8); Eosinophils % 0.8 % (0.00-10.9); Hemoglobin 7.9 GM/DL (14.0-18.0); Immature Granulocytes % 0.5 %; Immature Granulocytes Absolute 0.02 #; Lymphocytes # 0.3 10*3/uL (1.4-4.0); Lymphocytes % 8.6 % (21.2-54.2); Mean Corpuscular HGB Conc 31.6 GM/DL (32-36); Mean Corpuscular Hemoglobin 32 PG (27-34); Mean Corpuscular Volume 100.4 FL (87-102); Mean Platelet Volume 10.8 FL (9.6-12.0); Monocytes # 0.4 10*3/uL (0.11-0.8); Neutrophils % 78.8 % (38.7-73.9); Platelet Count 114 T/CUMM (130-400); Red Blood Count 2.49 MC/CUMM (3.8-5.5); Red Cell Distribution Width 18.3 % (9.3-17.3); White Blood Count 3.7 T/CUMM (4-12)
[2017-09-19 04:46] LABS: Albumin 1.6 G/DL (3.4-5.0); Bilirubin,Total 9.5 MG/DL (0.2-1.0); Calcium 8.3 MG/DL (8.5-10.1); Osmolality,Calculated 283.7 MOS/KG (273-304); Potassium 4.8 MMOL/L (3.5-5.1)
[2017-09-19] MEDS: ONDANSETRON 4 MG TABLET PO SCH ×2 (05:46→14:42)
[2017-09-19] MEDS: sitaGLIPtin 100 MG TABLET PO SCH (09:14)
[2017-09-19] MEDS: cloNIDine 0.1 MG TABLET PO SCH (09:14)
[2017-09-19] MEDS: HYDROmorphone 2 MG/1 ML VIAL IV PRN (09:15)
[2017-09-19] MEDS: BENAZEPRIL 40 MG TABLET PO SCH (09:15)
[2017-09-19 12:46] VITALS: BP 110/62
[2017-09-19] MEDS: GABAPENTIN 300 MG CAPSULE PO SCH ×2 (14:43→16:30)
[2017-09-19] MEDS: MAGNESIUM OXIDE 400 MG TABLET PO SCH (14:43)
[2017-09-19] MEDS: DOCUSATE SODIUM 100 MG CAPSULE PO SCH (14:43)
[2017-09-19] MEDS: ASPIRIN EC 81 MG TABLET PO SCH (14:43)
== END 2017-09-19 15:25 | disposition hospice, home (50) | DRG 445 ==
LOC: N.ED 05:35 → N.EDINP 10:22 → N.4E 10:55
PROVIDERS: ADMIT Specialist; ATTEND Specialist